=== PATIENT | female | born 1995 | race African-American/Black ===

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

== ENCOUNTER 2018-02-13 17:30 | Emergency (ER) | payer SELFPAY ==
[~2018-02-13] VITALS: Ht 167.6 cm; Wt 70.0 kg
[~2018-02-13 17:30] MED LIST: ALBUAER3 INH; AZIT250T3 PO; FERR1TAB36 PO; MEDR4PAK PO
[2018-02-13 17:41] VITALS: BP 128/63; PULSE 69; RESP 17; TEMP 98.7; O2SAT 100
[2018-02-13 17:58] VITALS: BP 128/78; PULSE 64; RESP 18; O2SAT 100
[2018-02-13] MEDS ORDERED: KETOROLAC TROMETHAMINE 30 MG/ML (IVP) VIAL IV PUSH ONE (18:15)
[2018-02-13 18:34] LABS: AUTOMATED NEUTROPHIL # 3.4 TH/MM3 (1.8-7.7); BASOPHIL # 0.1 TH/MM3 (0-0.2); BASOPHIL % 1.4 % (0.0-2.0); EOSINOPHIL # 0.1 TH/MM3 (0-0.4); EOSINOPHIL % 1.1 % (0.0-4.0); HEMATOCRIT 35.3 % (35.0-46.0); HEMOGLOBIN 10.9 GM/DL (11.6-15.3); LYMPH % 25.5 % (9.0-44.0); LYMPHOCYTE # 1.4 TH/MM3 (1.0-4.8); MEAN CELL VOLUME 66.6 FL (80.0-100.0); MEAN CORPUSCULAR HEMOGLOBIN 20.6 PG (27.0-34.0); MEAN CORPUSCULAR HGB CONC 30.9 % (32.0-36.0); MEAN PLATELET VOLUME 9.7 FL (7.0-11.0); MONO % 9.7 % (0.0-8.0); MONOCYTE # 0.5 TH/MM3 (0-0.9); NEUT % 62.3 % (16.0-70.0); PLATELET COUNT 346 TH/MM3 (150-450); RED CELL DISTRIBUTION WIDTH 17.5 % (11.6-17.2); WHITE BLOOD COUNT 5.5 TH/MM3 (4.0-11.0)
[2018-02-13 18:43] LABS: ALBUMIN 4.1 GM/DL (3.4-5.0); ALT (GPT) 19 U/L (10-53); AST (GOT) 18 U/L (15-37); BICARBONATE 26.6 MEQ/L (21.0-32.0); BLOOD UREA NITROGEN 9 MG/DL (7-18); CALCIUM 8.3 MG/DL (8.5-10.1); CHLORIDE 106 MEQ/L (98-107); CREATININE 0.75 MG/DL (0.50-1.00); GLOMERULAR FILTRATION RATE 118 ML/MIN (>89); GLUCOSE,RANDOM 94 MG/DL (74-106); MAGNESIUM 2.1 MG/DL (1.5-2.5); SODIUM (NA) 140 MEQ/L (136-145)
--- NOTE | 2018-02-13 18:51 | RADRPT ---
EXAM DATE/TIME: 02/13/2018 18:31 [facility] COMPARISON: No previous studies available for comparison. INDICATIONS : Pt states she has had SOB and the felling of "needles" on the left side of her chest. MEDICAL HISTORY : None. SURGICAL HISTORY : None. ENCOUNTER: Initial ACUITY: 2 days PAIN SCORE: 7/10 LOCATION: Bilateral chest FINDINGS: A single view of the chest demonstrates the lungs to be symmetrically aerated without evidence of mas s, infiltrate or effusion. The cardiomediastinal contours are unremarkable. Osseous structures are intact. CONCLUSION: No acute disease. Dominik Mckenzie MD on February 13, 2018 at 18:49 Board Certified Radiologist. This report was verified electronically.
[2018-02-13 18:53] LABS: ALKALINE PHOSPHATASE 55 U/L (45-117); TOTAL BILIRUBIN ADULT 0.3 MG/DL (0.2-1.0); TOTAL PROTEIN 7.9 GM/DL (6.4-8.2); TROPONIN I LESS THAN 0.02 NG/ML (0.02-0.05)
--- NOTE | 2018-02-13 19:02 | PD ---
Physical Exam Date Seen by Provider: February 13, 2018 Time Seen by Provider: 18:00 Narrative I, Dr. Francis, have reviewed the advance practice practitioner's documentation and am in agreement, met with the patient face to face, made the diagnosis, and the medical decision making was done by me. *My assessment and Findings: Patient is seen and evaluated with PA, please see PA note for further details. Patient is coming here for an atypical type chest pain, worse with deep breaths, intermittent in nature. Pulmonary and cardiac exam was fairly unremarkable. She does appear mildly anxious in the ER. EKG did not show any signs of dysrhythmias. Lab work was fairly unremarkable otherwise. D-dimer is negative. Chest x-ray was unremarkable. Plan would be to release her with follow-up to primary care doctor. Return for new issues as needed. The plan has been discussed with her and she states understanding. Data Data Last Documented VS Vital Signs Date Time Temp Pulse Resp B/P (MAP) Pulse Ox O2 Delivery O2 Flow Rate FiO2 02/13/18 17:58 64 18 128/78 (95) 100 Room Air 02/13/18 17:41 98.7 Orders Orders Electrocardiogram (02/13/18 18:13) Complete Blood Count With Diff (02/13/18 18:13) Comprehensive Metabolic Panel (02/13/18 18:13) Ckmb (Isoenzyme) Profile (02/13/18 18:13) Troponin I (02/13/18 18:13) Lipase (02/13/18 18:13) D-Dimer (02/13/18 18:13) Magnesium (Mg) (02/13/18 18:13) Thyroid Stimulating Hormone (02/13/18 18:13) Chest, Single Ap (02/13/18 18:13) Iv Access Insert/Monitor (02/13/18 18:13) Ecg Monitoring (02/13/18 18:13) Ketorolac Inj (Toradol Inj) (02/13/18 18:15) CKMB (02/13/18 18:15) CKMB% (02/13/18 18:15) Labs Laboratory Tests Test 02/13/18 18:15 White Blood Count 5.5 TH/MM3 Red Blood Count 5.30 MIL/MM3 Hemoglobin 10.9 GM/DL Hematocrit 35.3 % Mean Corpuscular Volume 66.6 FL Mean Corpuscular Hemoglobin 20.6 PG Mean Corpuscular Hemoglobin Concent 30.9 % Red Cell Distribution Width 17.5 % Platelet Count 346 TH/MM3 Mean Platelet Volume 9.7 FL Neutrophils (%) (Auto) 62.3 % Lymphocytes (%) (Auto) 25.5 % Monocytes (%) (Auto) 9.7 % Eosinophils (%) (Auto) 1.1 % Basophils (%) (Auto) 1.4 % Neutrophils # (Auto) 3.4 TH/MM3 Lymphocytes # (Auto) 1.4 TH/MM3 Monocytes # (Auto) 0.5 TH/MM3 Eosinophils # (Auto) 0.1 TH/MM3 Basophils # (Auto) 0.1 TH/MM3 CBC Comment DIFF FINAL Differential Comment D-Dimer Quantitative (PE/DVT) 0.19 MG/L FEU Blood Urea Nitrogen 9 MG/DL Creatinine 0.75 MG/DL Random Glucose 94 MG/DL Total Protein 7.9 GM/DL Albumin 4.1 GM/DL Calcium Level 8.3 MG/DL Magnesium Level 2.1 MG/DL Alkaline Phosphatase 55 U/L Aspartate Amino Transf (AST/SGOT) 18 U/L Alanine Aminotransferase (ALT/SGPT) 19 U/L Total Bilirubin 0.3 MG/DL Sodium Level 140 MEQ/L Potassium Level 3.8 MEQ/L Chloride Level 106 MEQ/L Carbon Dioxide Level 26.6 MEQ/L Anion Gap 7 MEQ/L Estimat Glomerular Filtration Rate 118 ML/MIN Total Creatine Kinase 101 U/L Troponin I LESS THAN 0.02 NG/ML Lipase 208 U/L Thyroid Stimulating Hormone 3rd Gen 0.524 uIU/ML [facility] Medical Record Reviewed: Yes Supervised Visit with JOSE: Yes Diagnosis Primary Impression: Atypical chest pain Scripts No Active Prescriptions or Reported Meds Disposition: 01 DISCHARGE HOME Condition: Stable Manda Francis MD February 13, 2018 19:01
[2018-02-13 19:08] VITALS: BP 121/72; PULSE 66; RESP 16; TEMP 98.3; O2SAT 100
[2018-02-13] MEDS ORDERED: MEDR4PAK PO (19:28)
[2018-02-13] MEDS ORDERED: BENZ100 PO (19:28)
[2018-02-13] MEDS ORDERED: DICL75TA PO (19:28)
[2018-02-13] MEDS ORDERED: AZIT250T3 PO (19:28)
--- NOTE | 2018-02-13 19:34 | PD ---
HPI Chief Complaint: Chest Pain Time Seen by Provider: 18:01 Travel History International Travel<30 days: No Contact w/Intl Traveler<30days: No Traveled to known affect area: No History of Present Illness HPI 23-year-old female that presents to the ED for evaluation of chest pain. Per patient she is having left-sided chest pain on and off for the past week. Per patient she was seen at [facility] and had some blood work and imaging but she was per patient was "told nothing" about her condition. She states that the pain continues and she talk to her mom who recommended that she comes here to get evaluated. She does have a history of anemia and heavy periods. She denies any shortness of breath at this time. No urinary or bowel movement issues. No abdominal pain. No nausea or vomiting. Per patient the pain goes to her back and comes and goes. She does get dizziness with it. Per patient he gets worse with deep breaths and sometimes at night. She denies any trauma. Per patient the pain is sharp and 8 out of 10. Feels like needles. Only when she takes a deep breath and radiates to the back. Has not seen anybody else other than in [facility]. No allergies to medication. No other medical issues at this time denies . PFS Past Medical History Anemia: Yes Tetanus Vaccination: < 5 Years Influenza Vaccination: No ?: Not LMP: 02/2018 Past Surgical History Surgical History: No Previous Surgery Social History Alcohol Use: No Tobacco Use: No Substance Use: No Allergies-Medications (Allergen,Severity, Reaction): Coded Allergies: No Known Allergies (Unverified Adverse Reaction, Unknown, 02/13/18) Reported Meds & Prescriptions Reported Meds & Active Scripts Active Tessalon Perles (Benzonatate) 100 Mg Cap 100 Mg PO TID PRN Diclofenac Sodium DR (Diclofenac Sodium) 75 Mg Tabdr 75 Mg PO BID PRN Azithromycin 250 Mg Tab 250 Mg PO DIRECTED Take 2 tabs (500 mg) on day 1 then 1 tab daily x 4 days. Medrol Dosepak (Methylprednisolone) 4 Mg Dspk 4 Mg PO DIRECTED Per Pharmacist direction Review of Systems Except as stated in HPI: all other systems reviewed are Neg Physical Exam Narrative GENERAL: Well-nourished, well-developed patient in no apparent distress. Patient was evaluated with female nurse present at all times SKIN: Warm and dry. HEAD: Atraumatic. Normocephalic. EYES: Pupils equal and round reactive to light and accommodation. No scleral icterus. No injection or drainage. ENT: No nasal bleeding or discharge. Mucous membranes pink and moist. TMs are clear with no sign of infection or perforation. No mastoid tenderness. Ear canals are intact bilaterally. No lymphadenopathy. Nostril mucosa is red and moist with clear mucus noted. No sinus tenderness to palpation noted. Tonsils are not enlarged or swollen. No ulvua Deviation. Tongue is midline. NECK: Trachea midline. No JVD. No meningeal signs noted CARDIOVASCULAR: Regular rate and rhythm. RESPIRATORY: No accessory muscle use. Clear to auscultation. Breath sounds equal bilaterally. GASTROINTESTINAL: Abdomen soft, non-tender, nondistended. Hepatic and splenic margins not palpable. MUSCULOSKELETAL: Extremities without clubbing, cyanosis, or edema. No obvious deformities. Full range of motion of the upper and lower extremities bilaterally. 2+ pulses bilaterally. NEUROLOGICAL: Awake and alert. No obvious cranial nerve deficits. Motor grossly within normal limits. Five out of 5 muscle strength in the arms and legs. Normal speech. PSYCHIATRIC: Appropriate mood and affect; insight and judgment normal. Data Data Last Documented VS Vital Signs Date Time Temp Pulse Resp B/P (MAP) Pulse Ox O2 Delivery O2 Flow Rate FiO2 02/13/18 19:08 98.3 66 16 121/72 (88) 100 Room Air Orders Orders Electrocardiogram (02/13/18 18:13) Complete Blood Count With Diff (02/13/18 18:13) Comprehensive Metabolic Panel (02/13/18 18:13) Ckmb (Isoenzyme) Profile (02/13/18 18:13) Troponin I (02/13/18 18:13) Lipase (02/13/18 18:13) D-Dimer (02/13/18 18:13) Magnesium (Mg) (02/13/18 18:13) Thyroid Stimulating Hormone (02/13/18 18:13) Chest, Single Ap (02/13/18 18:13) Iv Access Insert/Monitor (02/13/18 18:13) Ecg Monitoring (02/13/18 18:13) Ketorolac Inj (Toradol Inj) (02/13/18 18:15) CKMB (02/13/18 18:15) CKMB% (02/13/18 18:15) Ed Discharge Order (02/13/18 19:27) Labs Laboratory Tests Test 02/13/18 18:15 White Blood Count 5.5 TH/MM3 Red Blood Count 5.30 MIL/MM3 Hemoglobin 10.9 GM/DL Hematocrit 35.3 % Mean Corpuscular Volume 66.6 FL Mean Corpuscular Hemoglobin 20.6 PG Mean Corpuscular Hemoglobin Concent 30.9 % Red Cell Distribution Width 17.5 % Platelet Count 346 TH/MM3 Mean Platelet Volume 9.7 FL Neutrophils (%) (Auto) 62.3 % Lymphocytes (%) (Auto) 25.5 % Monocytes (%) (Auto) 9.7 % Eosinophils (%) (Auto) 1.1 % Basophils (%) (Auto) 1.4 % Neutrophils # (Auto) 3.4 TH/MM3 Lymphocytes # (Auto) 1.4 TH/MM3 Monocytes # (Auto) 0.5 TH/MM3 Eosinophils # (Auto) 0.1 TH/MM3 Basophils # (Auto) 0.1 TH/MM3 CBC Comment DIFF FINAL Differential Comment D-Dimer Quantitative (PE/DVT) 0.19 MG/L FEU Blood Urea Nitrogen 9 MG/DL Creatinine 0.75 MG/DL Random Glucose 94 MG/DL Total Protein 7.9 GM/DL Albumin 4.1 GM/DL Calcium Level 8.3 MG/DL Magnesium Level 2.1 MG/DL Alkaline Phosphatase 55 U/L Aspartate Amino Transf (AST/SGOT) 18 U/L Alanine Aminotransferase (ALT/SGPT) 19 U/L Total Bilirubin 0.3 MG/DL Sodium Level 140 MEQ/L Potassium Level 3.8 MEQ/L Chloride Level 106 MEQ/L Carbon Dioxide Level 26.6 MEQ/L Anion Gap 7 MEQ/L Estimat Glomerular Filtration Rate 118 ML/MIN Total Creatine Kinase 101 U/L Creatine Kinase MB LESS THAN 0.5 NG/ML Troponin I LESS THAN 0.02 NG/ML Lipase 208 U/L Thyroid Stimulating Hormone 3rd Gen 0.524 uIU/ML MDM Medical Decision Making Medical Screen Exam Complete: Yes Emergency Medical Condition: Yes Medical Record Reviewed: Yes Interpretation(s) CBC & BMP Diagram 02/13/18 18:15 Total Protein 7.9, Albumin 4.1, Calcium Level 8.3 L, Magnesium Level 2.1, Alkaline Phosphatase 55, Aspartate Amino Transf (AST/SGOT) 18, Alanine Aminotransferase (ALT/SGPT) 19, Total Bilirubin 0.3 Troponin and CK-MB negative. EKG shows sinus rhythm with no sign of acute ischemia or arrhythmia read by me and attending. D-dimer negative. Lipase within normal limits. Chest x-ray negative for acute disease. Differential Diagnosis Pleurisy versus costochondritis versus anemia versus bronchitis versus pneumonia versus a typical chest pain versus pancreatitis versus PE less likely versus ACS Narrative Course 23-year-old female that presents to the ED for evaluation of left-sided chest pain. Patient was properly examined and was found to have signs and symptoms consistent with appears to be more likely atypical chest pain. Labs and imaging were ordered. Labs and imaging were essentially unremarkable. Patient was given Toradol for her pain with improvement of symptoms. Is at this time this appears to be likely costochondritis versus pleurisy. Patient was told results and agrees with plan. This time I will give patient a prescription for Medrol Dosepak, azithromycin to cover for infection as well as congestion and diclofenac sodium and Tessalon Perles for her cough. Told to follow closely with PCP. See ED if worsening symptoms. Diagnosis Primary Impression: Atypical chest pain Additional Impressions: Pleurisy Cough Patient Instructions: General Instructions Additional Instructions: Motrin and Tylenol for pain and fever. You can use [id number] antihistamine as well as well as Mucinex as needed for runny nose and congestion. Cough drops for cough as needed. Drink plenty of fluids. Follow-up with PCP. See ED for worsening symptoms. Med/Other Pt SpecificInfo: Prescription(s) given Scripts Benzonatate (Tessalon Perles) 100 Mg Cap 100 MG PO TID Y for COUGH, #15 CAP 0 Refills Prov: Manda Francis MD 02/13/[address] (Diclofenac Sodium DR) 75 Mg Tabdr 75 MG PO BID Y for PAIN SCALE 1 TO 10, #20 TAB 0 Refills Prov: Manda Francis MD 02/13/18 Azithromycin (Azithromycin) 250 Mg Tab 250 MG PO DIRECTED for Infection, #6 TAB Take 2 tabs (500 mg) on day 1 then 1 tab daily x 4 days. Prov: Manda Francis MD 02/13/18 Methylprednisolone Dosepak (Medrol Dosepak) 4 Mg Dspk 4 MG PO DIRECTED, #1 DSPK Per Pharmacist direction Prov: Manda Francis MD 02/13/18 Disposition: 01 DISCHARGE HOME Condition: Stable Rodolfo Cantor February 13, 2018 19:34
--- NOTE | 2018-02-14 13:41 | EKG ---
Date Performed: 02/13/2018 Time Performed: 18:02:29 PTAGE: 23 years EKG: Sinus rhythm POSSIBLE RIGHT VENTRICULAR CONDUCTION DELAY BORDERLINE ECG NO PREVIOUS TRACING 02/13/2018 18:02 Since the previous tracing, no significant change note d DOCTOR: Bahman Platt Interpretating Date/Time 02/14/2018 13:40:18
== END 2018-02-13 19:54 | disposition home or self-care (01) ==
LOC: NEPC 17:30
DX: R07.89 Other chest pain (principal); R09.1 Pleurisy; R05 Cough; R42 Dizziness and giddiness; R94.31 Abnormal electrocardiogram [ECG] [EKG]
CPT/HCPCS: 71045; 80053; 82550; 82552; 83690; 83735; 84443; 84484; 85025; 85379; 93005; 96374; 99285; J1885